=== PATIENT | male | born 1950 | race Two or more races ===

== ENCOUNTER 2019-06-02 06:09 | Observation (INO) | payer MEDICARE, OTHER ==
[2019-06-02] MEDS ORDERED: Sodium Chloride 0.9% 2.5 ML Syringe FLUSH PRN (06:29)
[2019-06-02] MEDS ORDERED: Sodium Chloride 0.9% 10 ML Syringe FLUSH PRN (06:29)
[2019-06-02 07:25] LABS: CHLORIDE,CL 107 mmol/L (98-107); SODIUM,NA 143 mmol/L (136-148)
--- NOTE | 2019-06-02 07:54 | CR ---
INDICATION: Body pain COMPARISON: none TECHNIQUE: Portable AP erect chest performed at 6:41 a.m. FINDINGS: The lungs are clear. There is no evidence of pneumothorax. The heart, mediastinum and pulmonary vessels are of normal size. There is no evidence of pleural fluid. IMPRESSION: Negative chest. Dictated by Reuben Weber MD @ Jun 02 2019 7:52AM Signed by Dr. Reuben Weber @ Jun 02 2019 7:53AM
[2019-06-02] MEDS ORDERED: Ketorolac 30 MG/ML SDV IVPUSH ONE (08:18)
--- NOTE | 2019-06-02 08:48 | EDM.PDOC ---
ED HPI GENERAL MEDICAL PROBLEM - General Chief Complaint: General Stated Complaint: ALL OVER BODY PAIN Time Seen by Provider: 06/02/19 08:45 Source of Information: Reports: Patient, Family - History of Present Illness INITIAL COMMENTS - FREE TEXT/NARRATIVE: HISTORY AND PHYSICAL: History of present illness: []Patient presents with maculopapular rash over the last week which she's been taking a Medrol Dosepak for this his main complaint today is he is having some chest pain arm and leg pain at 7 out of 10 nonradiating No fever nausea vomiting chills sweats no shortness breath headache dizziness or palpitation no bowel or urine symptoms Review of systems: As per history of present illness and below otherwise all systems reviewed and negative. Past medical history: As per history of present illness and as reviewed below otherwise noncontributory. Surgical history: As per history of present illness and as reviewed below otherwise noncontributory. Social history: No reported history of drug or alcohol abuse. Family history: As per history of present illness and as reviewed below otherwise noncontributory. Physical exam: HEENT: Atraumatic, normocephalic, pupils reactive, negative for conjunctival pallor or scleral icterus, mucous membranes moist, throat clear, neck supple, nontender, trachea midline. Lungs: Clear to auscultation, breath sounds equal bilaterally, chest nontender. Heart: S1S2, regular, negative for clicks, rubs, or JVD. Abdomen: Soft, nondistended, nontender. Negative for masses or hepatosplenomegaly. Negative for costovertebral tenderness. Pelvis: Stable nontender. Genitourinary: Deferred. Rectal: Deferred. Extremities: Atraumatic, negative for cords or calf pain. Neurovascular unremarkable. Neuro: Awake, alert, oriented. Cranial nerves II through XII unremarkable. Cerebellum unremarkable. Motor and sensory unremarkable throughout. Exam nonfocal. Diagnostics: [CBC CMP UA EKG Chest 1 view ] Therapeutics: [] normal saline Toradol Pathology is involved doing further studies concerned about potential for leukemia Dr. Tal Isaac his admitting observation Impression: [ atypical chest pain , cytopenia Leukocytosis ] Definitive disposition and diagnosis as appropriate pending reevaluation and review of above. Generalized Pain Score (Numeric/FACES): 8 - Related Data Allergies Allergy/AdvReac Type Severity Reaction Status Date / Time Iodinated Contrast- Oral and Allergy Airway Verified 06/02/19 06:42 IV Dye Tightness Home Meds: Home Meds Ibuprofen 200 mg PO ASDIRECTED 06/02/19 [History] Losartan Potassium 25 mg PO DAILY 06/02/19 [History] atorvaSTATin [Lipitor] 10 mg PO DAILY 06/02/19 [History] methylPREDNISolone [Methylprednisolone] 4 mg PO ASDIRECTED 06/02/19 [History] Past Medical History HEENT History: Reports: None Cardiovascular History: Reports: High Cholesterol, Hypertension Respiratory History: Reports: Asthma Gastrointestinal History: Reports: None Genitourinary History: Reports: None Musculoskeletal History: Reports: None Neurological History: Reports: None Psychiatric History: Reports: None Endocrine/Metabolic History: Reports: None Hematologic History: Reports: None Immunologic History: Reports: None Oncologic (Cancer) History: Reports: None Dermatologic History: Reports: None - Infectious Disease History Infectious Disease History: Reports: None - Past Surgical History Head Surgeries/Procedures: Reports: None Social & Family History - Tobacco Use Smoking Status *Q: Never Smoker - Recreational Drug Use Recreational Drug Use: No ED ROS GENERAL - Review of Systems Review Of Systems: See Below ED EXAM, GENERAL - Physical Exam Exam: See Below Course - Vital Signs Last Recorded V/S: Last Vital Signs Temp 97.9 F 06/02/19 06:44 Pulse 61 06/02/19 08:26 Resp 18 06/02/19 08:26 BP 135/79 06/02/19 08:26 Pulse Ox 99 06/02/19 08:26 - Orders/Labs/Meds Orders: Active Orders 24 hr Category Date Time Status Cardiac Monitoring [RC] . DIRECTED Care 06/02/19 06:29 Active EKG Documentation Completion [RC] STAT Care 06/02/19 06:29 Active Oxygen Therapy [RC] ASDIRECTED Care 06/02/19 06:29 Active Pulse Oximetry [RC] ASDIRECTED Care 06/02/19 06:29 Active CBC WITH AUTO DIFF [HEME] Stat Lab 06/02/19 06:35 Results LYME, TOTAL AB TEST/REFLEX [REF] Stat Lab 06/02/19 06:35 Received Sodium Chloride 0.9% [Saline Flush] Med 06/02/19 06:29 Active 10 ml FLUSH ASDIRECTED PRN Sodium Chloride 0.9% [Saline Flush] Med 07/18/19 06:29 Active 2.5 ml FLUSH ASDIRECTED PRN Saline Lock Insert [OM.PC] Stat Oth 06/02/19 06:29 Ordered Medication Orders Sodium Chloride (Saline Flush) 10 ml FLUSH ASDIRECTED PRN PRN Reason: Keep Vein Open Last Admin: 06/02/19 08:24 Dose: 10 ml Sodium Chloride (Saline Flush) 2.5 ml FLUSH ASDIRECTED PRN PRN Reason: Keep Vein Open Last Admin: 06/02/19 08:24 Dose: 2.5 ml Labs: Laboratory Tests 06/02/19 06/02/19 06/02/19 Range/Units 06:35 06:35 06:35 WBC 19.33 H (4.0-11.0) K/uL RBC 3.47 L (4.50-5.90) M/uL Hgb 10.8 L (13.0-17.0) g/dL Hct 33.5 L (38.0-50.0) % MCV 96.5 (80.0-98.0) fL MCH 31.1 (27.0-32.0) pg MCHC 32.2 (31.0-37.0) g/dL RDW Std Deviation 59.4 (28.0-62.0) fl RDW Coeff of Felicita 17 H (11.0-15.0) % Plt Count 34 L (150-400) K/uL Add Manual Diff YES Nucleated RBC % 0.7 /100WBC Nucleated RBCs # 0 K/uL INR 1.10 Sodium 143 (136-148) mmol/L Potassium 3.6 (3.5-5.1) mmol/L Chloride 107 (98-107) mmol/L Carbon Dioxide 24.2 (21.0-32.0) mmol/L BUN 22 H (7.0-18.0) mg/dL Creatinine 0.8 (0.8-1.3) mg/dL Est Cr Clr Drug Dosing 83.77 mL/min Estimated GFR (MDRD) > 60.0 ml/min Glucose 104 (74-106) mg/dL Calcium 8.3 L (8.5-10.1) mg/dL Total Bilirubin 0.3 (0.2-1.0) mg/dL AST 66 H (15-37) IU/L ALT 34 (14-63) IU/L Alkaline Phosphatase 191 H (46-116) U/L Creatine Kinase (26-308) U/L Troponin I < 0.050 (0.000-0.056) ng/mL Total Protein 7.4 (6.4-8.2) g/dL Albumin 3.8 (3.4-5.0) g/dL Globulin 3.6 (2.6-4.0) g/dL Albumin/Globulin Ratio 1.1 (0.9-1.6) Urine Color Urine Appearance Urine pH (5.0-8.0) Ur Specific [place] (1.001-1.035) Urine Protein (NEGATIVE) mg/dL Urine Glucose (UA) (NEGATIVE) mg/dL Urine Ketones (NEGATIVE) mg/dL Urine Occult Blood (NEGATIVE) Urine Nitrite (NEGATIVE) Urine Bilirubin (NEGATIVE) Urine Urobilinogen (<2.0) EU/dL Ur Leukocyte Esterase (NEGATIVE) Urine RBC (0-2/HPF) Urine WBC (0-5/HPF) Ur Epithelial Cells (NONE-FEW) Urine Bacteria (NEGATIVE) 06/02/19 06/02/19 Range/Units 06:35 07:39 WBC (4.0-11.0) K/uL RBC (4.50-5.90) M/uL Hgb (13.0-17.0) g/dL Hct (38.0-50.0) % MCV (80.0-98.0) fL MCH (27.0-32.0) pg MCHC (31.0-37.0) g/dL RDW Std Deviation (28.0-62.0) fl RDW Coeff of Felicita (11.0-15.0) % Plt Count (150-400) K/uL Add Manual Diff Nucleated RBC % /100WBC Nucleated RBCs # K/uL INR Sodium (136-148) mmol/L Potassium (3.5-5.1) mmol/L Chloride (98-107) mmol/L Carbon Dioxide (21.0-32.0) mmol/L BUN (7.0-18.0) mg/dL Creatinine (0.8-1.3) mg/dL Est Cr Clr Drug Dosing mL/min Estimated GFR (MDRD) ml/min Glucose (74-106) mg/dL Calcium (8.5-10.1) mg/dL Total Bilirubin (0.2-1.0) mg/dL AST (15-37) IU/L ALT (14-63) IU/L Alkaline Phosphatase (46-116) U/L Creatine Kinase 118 (26-308) U/L Troponin I (0.000-0.056) ng/mL Total Protein (6.4-8.2) g/dL Albumin (3.4-5.0) g/dL Globulin (2.6-4.0) g/dL Albumin/Globulin Ratio (0.9-1.6) Urine Color YELLOW Urine Appearance CLEAR Urine pH 6.5 (5.0-8.0) Ur Specific [place] 1.015 (1.001-1.035) Urine Protein NEGATIVE (NEGATIVE) mg/dL Urine Glucose (UA) NEGATIVE (NEGATIVE) mg/dL Urine Ketones NEGATIVE (NEGATIVE) mg/dL Urine Occult Blood TRACE-INTACT H (NEGATIVE) Urine Nitrite NEGATIVE (NEGATIVE) Urine Bilirubin NEGATIVE (NEGATIVE) Urine Urobilinogen 0.2 (<2.0) EU/dL Ur Leukocyte Esterase NEGATIVE (NEGATIVE) Urine RBC 0-1 (0-2/HPF) Urine WBC 0-1 (0-5/HPF) Ur Epithelial Cells RARE (NONE-FEW) Urine Bacteria RARE (NEGATIVE) Meds: Medications Generic Name Dose Route Start Last Admin Trade Name Freq PRN Reason Stop Dose Admin Sodium Chloride 10 ml 06/02/19 06:29 06/02/19 08:24 Saline Flush FLUSH 10 ml ASDIRECTED PRN Administration Keep Vein Open Sodium Chloride 2.5 ml 06/02/19 06:29 06/02/19 08:24 Saline Flush FLUSH 2.5 ml ASDIRECTED PRN Administration Keep Vein Open Discontinued Medications Generic Name Dose Route Start Last Admin Trade Name Freq PRN Reason Stop Dose Admin Ketorolac Tromethamine 30 mg 06/02/19 08:18 06/02/19 08:23 Toradol IVPUSH 06/02/19 08:19 30 mg ONETIME ONE Administration Departure - Departure Time of Disposition: 08:47 Disposition: Refer to Observation Condition: Fair Clinical Impression: Thrombocytopenia - Discharge Information Referrals: PCP,None [Primary Care Provider] - - My Orders Last 24 Hours: My Active Orders 06/02/19 06:35 LYME, TOTAL AB TEST/REFLEX [REF] Stat - Assessment/Plan Last 24 Hours: My Active Orders 06/02/19 06:35 LYME, TOTAL AB TEST/REFLEX [REF] Stat
[2019-06-02] MEDS: Morphine 2 MG/ML Syringe IVPUSH ONE ×2 (10:41→12:57)
[2019-06-02] MEDS ORDERED: Sodium Chloride 0.9% 1,000 ML IV SCH (11:30)
[2019-06-02] MEDS ORDERED: Levofloxacin/Dextrose 5%-Water 750 MG in Premix Bag 1 BAG IV SCH (11:30)
--- NOTE | 2019-06-02 11:40 | PCM.HP ---
H&P History of Present Illness - General Date of Service: 06/02/19 Admit Problem/Dx: Admission Diagnosis/Problem Admission Diagnosis/Problem Thrombocytopenia - History of Present Illness Initial Comments - Free Text/Narative: 68 yo male who reports one week history of rash over head and face. He was prescribed medrol dose pack with some improvement in his rash but is now reporting pain in his muscles, including he arms, legs and chest. He denies any fevers. He denies and bruising, or blood in stool. In the ED was noted to have a WBC of 19,000 and platelet of 34,000. Pathologist reported many blasts and was concerned about acute leukemia. I called Dr. David who recommended fluid hydration, coagulation work up and IV levaquin. He also recommended transfer for urgent oncology work up including bone marrow biopsy. I spoke with Dr. Nelson at [facility] in [place] who has accepted the patient. Generalized Pain Score (Numeric/FACES): 8 - Related Data Allergies/Adverse Reactions: Allergies Allergy/AdvReac Type Severity Reaction Status Date / Time Iodinated Contrast- Oral and Allergy Airway Verified 06/02/19 06:42 IV Dye Tightness Home Medications: Home Meds RX: Ibuprofen 200 mg PO ASDIRECTED 06/02/19 [History] RX: Losartan Potassium 25 mg PO DAILY 06/02/19 [History] atorvaSTATin [Lipitor] 10 mg PO DAILY 06/02/19 [History] methylPREDNISolone [Methylprednisolone] 4 mg PO ASDIRECTED 06/02/19 [History] Past Medical History HEENT History: Reports: None Cardiovascular History: Reports: High Cholesterol, Hypertension Respiratory History: Reports: Asthma Gastrointestinal History: Reports: None Genitourinary History: Reports: None Musculoskeletal History: Reports: None Neurological History: Reports: None Psychiatric History: Reports: None Endocrine/Metabolic History: Reports: None Hematologic History: Reports: None Immunologic History: Reports: None Oncologic (Cancer) History: Reports: None Dermatologic History: Reports: None - Infectious Disease History Infectious Disease History: Reports: None - Past Surgical History Head Surgeries/Procedures: Reports: None Social & Family History - Tobacco Use Smoking Status *Q: Never Smoker - Recreational Drug Use Recreational Drug Use: No H&P Review of Systems - Review of Systems: Review Of Systems: ROS reveals no pertinent complaints other than HPI. Exam - Exam Exam: See Below - Vital Signs Vital Signs: Last Vital Signs Temp 36.2 C 07/18/19 10:55 Pulse 59 L 06/02/19 10:55 Resp 18 06/02/19 10:55 BP 137/70 06/02/19 10:55 Pulse Ox 97 06/02/19 10:55 Weight: 93.5 kg - Exam General: Alert, Oriented HEENT: Mucosa Moist & [place] Neck: Supple Lungs: Clear to Auscultation Cardiovascular: Regular Rate, Regular Rhythm GI/Abdominal Exam: Soft, Non-Tender Extremities: Non-Tender, No Pedal Edema Skin: Rash (macular papular rash) - Patient Data Lab Results Last 24 hrs: Laboratory Results - last 24 hr 06/02/19 06/02/19 06/02/19 Range/Units 06:35 06:35 06:35 WBC 19.33 H (4.0-11.0) K/uL RBC 3.47 L (4.50-5.90) M/uL Hgb 10.8 L (13.0-17.0) g/dL Hct 33.5 L (38.0-50.0) % MCV 96.5 (80.0-98.0) fL MCH 31.1 (27.0-32.0) pg MCHC 32.2 (31.0-37.0) g/dL RDW Std Deviation 59.4 (28.0-62.0) fl RDW Coeff of Felicita 17 H (11.0-15.0) % Plt Count 34 L (150-400) K/uL Add Manual Diff YES Neutrophils % (Manual) 18 L (48.0-80.0) % Band Neutrophils % 6 % Lymphocytes % (Manual) 54 H (16.0-40.0) % Immat Monocytes % (Man) Monocytes % (Manual) 20 H (0.0-15.0) % Blast Cells % 2 % Nucleated RBC % 0.7 /100WBC Absolute Seg Neuts 3.5 (1.4-5.7) Band Neutrophils # 1.2 Lymphocytes # (Manual) 10.4 H (0.6-2.4) Monocytes # (Manual) 3.9 H (0.0-0.8) Nucleated RBCs 1 % Nucleated RBCs # 0 K/uL Absolute Blast Cells 0.4 INR 1.10 Sodium 143 (136-148) mmol/L Potassium 3.6 (3.5-5.1) mmol/L Chloride 107 (98-107) mmol/L Carbon Dioxide 24.2 (21.0-32.0) mmol/L BUN 22 H (7.0-18.0) mg/dL Creatinine 0.8 (0.8-1.3) mg/dL Est Cr Clr Drug Dosing 83.77 mL/min Estimated GFR (MDRD) > 60.0 ml/min Glucose 104 (74-106) mg/dL Calcium 8.3 L (8.5-10.1) mg/dL Total Bilirubin 0.3 (0.2-1.0) mg/dL AST 66 H (15-37) IU/L ALT 34 (14-63) IU/L Alkaline Phosphatase 191 H (46-116) U/L Creatine Kinase (26-308) U/L Troponin I < 0.050 (0.000-0.056) ng/mL Total Protein 7.4 (6.4-8.2) g/dL Albumin 3.8 (3.4-5.0) g/dL Globulin 3.6 (2.6-4.0) g/dL Albumin/Globulin Ratio 1.1 (0.9-1.6) Urine Color Urine Appearance Urine pH (5.0-8.0) Ur Specific [place] (1.001-1.035) Urine Protein (NEGATIVE) mg/dL Urine Glucose (UA) (NEGATIVE) mg/dL Urine Ketones (NEGATIVE) mg/dL Urine Occult Blood (NEGATIVE) Urine Nitrite (NEGATIVE) Urine Bilirubin (NEGATIVE) Urine Urobilinogen (<2.0) EU/dL Ur Leukocyte Esterase (NEGATIVE) Urine RBC (0-2/HPF) Urine WBC (0-5/HPF) Ur Epithelial Cells (NONE-FEW) Urine Bacteria (NEGATIVE) 06/02/19 06/02/19 Range/Units 06:35 07:39 WBC (4.0-11.0) K/uL RBC (4.50-5.90) M/uL Hgb (13.0-17.0) g/dL Hct (38.0-50.0) % MCV (80.0-98.0) fL MCH (27.0-32.0) pg MCHC (31.0-37.0) g/dL RDW Std Deviation (28.0-62.0) fl RDW Coeff of Felicita (11.0-15.0) % Plt Count (150-400) K/uL Add Manual Diff Neutrophils % (Manual) (48.0-80.0) % Band Neutrophils % % Lymphocytes % (Manual) (16.0-40.0) % Immat Monocytes % (Man) Monocytes % (Manual) (0.0-15.0) % Blast Cells % % Nucleated RBC % /100WBC Absolute Seg Neuts (1.4-5.7) Band Neutrophils # Lymphocytes # (Manual) (0.6-2.4) Monocytes # (Manual) (0.0-0.8) Nucleated RBCs % Nucleated RBCs # K/uL Absolute Blast Cells INR Sodium (136-148) mmol/L Potassium (3.5-5.1) mmol/L Chloride (98-107) mmol/L Carbon Dioxide (21.0-32.0) mmol/L BUN (7.0-18.0) mg/dL Creatinine (0.8-1.3) mg/dL Est Cr Clr Drug Dosing mL/min Estimated GFR (MDRD) ml/min Glucose (74-106) mg/dL Calcium (8.5-10.1) mg/dL Total Bilirubin (0.2-1.0) mg/dL AST (15-37) IU/L ALT (14-63) IU/L Alkaline Phosphatase (46-116) U/L Creatine Kinase 118 (26-308) U/L Troponin I (0.000-0.056) ng/mL Total Protein (6.4-8.2) g/dL Albumin (3.4-5.0) g/dL Globulin (2.6-4.0) g/dL Albumin/Globulin Ratio (0.9-1.6) Urine Color YELLOW Urine Appearance CLEAR Urine pH 6.5 (5.0-8.0) Ur Specific [place] 1.015 (1.001-1.035) Urine Protein NEGATIVE (NEGATIVE) mg/dL Urine Glucose (UA) NEGATIVE (NEGATIVE) mg/dL Urine Ketones NEGATIVE (NEGATIVE) mg/dL Urine Occult Blood TRACE-INTACT H (NEGATIVE) Urine Nitrite NEGATIVE (NEGATIVE) Urine Bilirubin NEGATIVE (NEGATIVE) Urine Urobilinogen 0.2 (<2.0) EU/dL Ur Leukocyte Esterase NEGATIVE (NEGATIVE) Urine RBC 0-1 (0-2/HPF) Urine WBC 0-1 (0-5/HPF) Ur Epithelial Cells RARE (NONE-FEW) Urine Bacteria RARE (NEGATIVE) Result Diagrams: 06/02/19 06:35 06/02/19 06:35 Problem List Initiated/Reviewed/Updated: Yes Orders Last 24hrs: Active Orders 24 hr Category Date Time Status Admission Status [Patient Status] [ADT] Stat ADT 06/02/19 10:30 Active Cardiac Monitoring [RC] . DIRECTED Care 06/02/19 06:29 Active Telemetry Monitoring [Cardiac Monitoring] [RC] . Care 06/02/19 11:15 Active DIRECTED FIBRINOGEN [COAG] Routine Lab 06/02/19 11:23 Ordered LYME, TOTAL AB TEST/REFLEX [REF] Stat Lab 06/02/19 06:35 Received PTT,PARTIAL THROMBOPLSTIN TIME [COAG] Routine Lab 06/02/19 11:23 Ordered Levofloxacin/Dextrose 5%-Water [Levaquin in D5W 750 MG/ Med 06/02/19 11:30 Ordered 150 ML] 750 mg Premix Bag 1 bag IV Q24H Sodium Chloride 0.9% @ 150 MLS/HR (1,000ml) Med 06/02/19 11:30 Ordered Sodium Chloride 0.9% [Normal Saline] 1,000 ml IV ASDIRECTED Sodium Chloride 0.9% [Saline Flush] Med 06/02/19 06:29 Active 10 ml FLUSH ASDIRECTED PRN Sodium Chloride 0.9% [Saline Flush] Med 06/02/19 06:29 Active 2.5 ml FLUSH ASDIRECTED PRN Saline Lock Insert [OM.PC] Stat Oth 06/02/19 06:29 Ordered Medication Orders Levofloxacin/Dextrose 750 mg/ (Premix) 150 mls @ 100 mls/hr IV Q24H LARRY Sodium Chloride (Normal Saline) 1,000 mls @ 150 mls/hr IV ASDIRECTED LARRY Sodium Chloride (Saline Flush) 10 ml FLUSH ASDIRECTED PRN PRN Reason: Keep Vein Open Last Admin: 06/02/19 08:24 Dose: 10 ml Sodium Chloride (Saline Flush) 2.5 ml FLUSH ASDIRECTED PRN PRN Reason: Keep Vein Open Last Admin: 06/02/19 08:24 Dose: 2.5 ml Assessment/Plan Comment:: 68 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 Plan is to transfer to [place] for further oncology consultation.
[2019-06-02] MEDS ORDERED: Morphine 2 MG/ML Syringe IVPUSH ONE (12:51)
== END 2019-06-02 13:00 ==
LOC: MW.ED 06:09 → MW.MS 10:30
PROVIDERS: ADMIT Internal Medicine; ATTEND Internal Medicine
DX: D69.6 Thrombocytopenia, unspecified (principal); M79.18 Myalgia, other site; E78.00 Pure hypercholesterolemia, unspecified; I10 Essential (primary) hypertension; J45.909 Unspecified asthma, uncomplicated; Z79.1 Long term (current) use of non-steroidal anti-inflammatories (NSAID); Z91.041 Radiographic dye allergy status; Z79.899 Other long term (current) drug therapy; Z79.52 Long term (current) use of systemic steroids
CPT/HCPCS: 71045; 80053; 81001; 82550; 84484; 85025; 85384; 85610; 85730; 86618; 93005; 96374; 96375; 96376; 99284; A4217; G0378; J1885; J1956; J2270; J7040; 99283